=== PATIENT | male | born 1945 | race Caucasian/White ===

== ENCOUNTER 2016-03-10 18:23 | Inpatient (IN) | END 2016-03-11 17:30 | disposition home health service (06) | DRG 871 | DX: A41.9 Sepsis, unspecified organism (principal); G93.41 Metabolic encephalopathy; E11.9 Type 2 diabetes mellitus without complications; N39.0 Urinary tract infection, site not specified; I10 Essential (primary) hypertension; D64.9 Anemia, unspecified; N45.2 Orchitis; N43.3 Hydrocele, unspecified; N40.1 Benign prostatic hyperplasia with lower urinary tract symptoms; R39.198 Other difficulties with micturition; E78.5 Hyperlipidemia, unspecified ==